=== PATIENT | female | born 1975 | race Caucasian/White ===

== ENCOUNTER 2022-11-12 15:12 | Outpatient (CLI) | payer OTHER ==
--- NOTE | 2022-11-12 16:27 | SLEEP CARE CONSULTATION ---
Information from patient questionnaire entered by Isela Rico. I have reviewed and concur with the information entered by Isela Rico. This document represents the service I personally performed and the decisions made by me, India Koch ARNP. History of Present Illness Service Date and Time: 11/12/2022 1512 Reason for Visit: New patient, Previously diagnosed sleep apnea, sleep apnea on CPAP therapy Chief Complaint: reports: Other (UPDATE SUPPLIES) Date of Onset: USING CPAP5+YRS Usual bedtime: 9-10PM Time it takes to fall asleep: 1HR Snores at night: No Observed to quit breathing while asleep: Yes Sleeps alone due to snoring: No Number of times waking at night: 2-3 Reasons for waking at night: reports: Gasping for air, Pain, Bathroom, Other (NOISE) Toss, Turn, or Twitch while sleeping: Yes Recalls having dreams: Yes Usually gets out of bed at: 6AM Feels refreshed in the morning: No Morning headache: No Sleepy or fatigued during the day: Yes Ever fallen asleep while driving: No Takes day naps: No Dreams during day naps: No Prior sleep studies: Yes Year and Where: [facility] 2017, [facility] 2021 Additional HPI information: ALEX JIMENEZ was previously diagnosed at [facility] in 12/23/2021 to have severe, AHI 36.8, obstructive sleep apnea-hypopnea syndrome and comes in today to establish care for CPAP therapy. - Parasomnia Symptoms Ever been unable to move upon waking from sleep: No Walks in sleep: No Talks in sleep: No Ever acted out dreams in sleep: No Ever felt weak in the knees when startled or emotional: No Bothered by creepy, crawly, restless sensations in legs: No Problems with memory or concentration: No CPAP Compliance Data - Data Reviewed with Patient Average duration of nightly device use: 8 hour 59 minutes Compliance rate %: 100 (30/30 days used) Current pressure setting (cmH2O): 10-20 (median 10.6, avg 12.8, max 14.7) Average residual AHI: 0.4 Central apnea: 0.0 Obstructive apnea: 0.2 Hypopnea: 0.1 Compliance data discussion: She has a ResMed Airsense 10 s/u 02/2017. She is using a Resmed AirTouch F20, size small, mask. She is using [employer] for her supplies. Subjective Patient concerns: reports: mask discomfort, air blowing in eyes, mask leak noise, dry mouth, nose, throat (dry mouth/gums), other (swollen, puffy eyes; otto on face). denies: aerophagia, condensation in mask/hose, nasal congestion, epistaxis Observed to snore while using device: No Current pressure setting perceived as: comfortable On therapy, patient: reports: sleeping better, awakening more refreshed, being more awake and alert during the day, more rested overall. denies: drowsiness while driving Initial [place] Sleepiness Scale score: 5 (11/11/22) Past Medical History Past Medical History: reports: Hypertension, Anxiety, Depression Social History The patient's occupation is a TEACHER. Patient is / and lives in . Have you smoked in the past 12 months: No Alcohol use: Yes Alcohol amount and frequency: 1-2 DRINKS A MONTH Caffeine use: Yes Caffeine amount and frequency: 1 CUP DAILY Family History Family history of sleep disordered breathing: Yes Family Hx Sleep Apnea: Mother: Snoring, Sleep apnea - Untreated, Father: Snoring, Sleep apnea - Untreated Allergies and Home Medications Known drug allergies: No Drug allergies reviewed: Yes Home medication list reviewed: Yes Allergy and home medication list: Medications: Diltiazem Review of Systems Weight loss over past 5 years: 55, since March 2021 Cardiovascular: reports: high blood pressure, chest pain, leg or foot swelling Gastrointestinal: denies: heartburn Urinary: reports: incontinence Neurological: reports: headaches Psychiatric: reports: anxiety, depression Ear/Nose/Throat: reports: dry mouth/throat Endocrine: denies: thyroid disease Physical Exam Vital signs obtained and entered by: ISELA Vann MA Blood Pressure: 152/100 (LEFT ARM) Cuff size: regular Heart Rate: 74 O2 Saturation: 98 Height: 5 ft 7 in Weight: 281 lb 9.6 oz Body Mass Index: 44.1 BMI Classification: Morbidly Obese Neck circumference: 17 Heart: regular rate and rhythm Lungs: clear bilaterally Impression and Plan 1. Obstructive Sleep Apnea-Hypopnea Syndrome, severe, with good treatment compliance and good apnea control. On CPAP therapy, the patient has better sleep quality and is more rested overall. Patient would like to use an oral appliance to control her sleep apnea. She does wear her mask every night but she wakes up with swollen eyes and otto on her face. She states is not very comfortable but she perseveres. I explained to her that an oral appliance will not usually control her severity of sleep apnea. She is trying to lose weight and has lost 55 pounds since March 2021. That would be about 20-25 pounds since her last sleep study. I encouraged her to continue to try to lose weight and that we will monitor and possibly do another sleep study to verify changes in her sleep apnea severity. She voiced agreement and understanding. Patient's apnea severity and rationale for treatment to reduce apnea, improve sleep quality and reduce cardiovascular and cerebrovascular events was reviewed. I also reviewed the benefit of consistent device use of CPAP for hypertension and depression. Patient would like to try a different mask. I did discuss with her using barriers to help make her mask more comfortable. I also showed her the ResMed AirFit F30i which could be more comfortable for her to wear. She liked the looks of it and I will write for a mask fitting so she can try it. I will add this to her prescription update. 2. Obesity, unspecified. Currently patients BMI is 44.1. Obesity increases the risk of apnea, CPAP pressure requirements and overall health risks especially cardiovascular and diabetes. Thus patient is advised to continue to try to lose weight. * Change auto CPAP pressure to 10-14 cmH2O * Update supplies * Notify me if snoring with mask or feeling that the pressure is too much or too little * Attempt to lose weight * Call this office if any problems using CPAP * Return for follow up in 1 year, or sooner if concerns arise Counseling Topics: Spare mask, Weight loss health impact Visit Type: In Office Time Spent with Patient (minutes): 32 Provider Statement: I spent 100% of the Face to Face Visit with the patient with greater than 50% spent counseling the patient and coordination of care.
[2022-11-12 16:47] VITALS: BP 152/100
== END 2022-11-12 15:13 | disposition home or self-care (01) ==
LOC: SC 15:12
PROVIDERS: ATTEND Nurse Practitioner Family
DX: G47.33 Obstructive sleep apnea (adult) (pediatric) (principal); E66.01 Morbid (severe) obesity due to excess calories; Z68.41 Body mass index [BMI] 40.0-44.9, adult
CPT/HCPCS: 99203; 99212

== ENCOUNTER 2024-01-14 15:44 | Outpatient (CLI) | payer OTHER ==
--- NOTE | 2024-01-14 16:14 | Sleep Patient Instructions ---
Sleep Center Visit Summary - Patient Visit Information Reason for Visit: Annual follow-up - Patient Instructions Additional Instructions: You will continue with CPAP therapy with pressure set at 10-14 cmH2O. A supply prescription will be updated with your DME. I will order a sleep study, either an in-lab polysomnography (PSG) or home sleep study (HST). You will follow-up in the sleep care office after the sleep study. We encourage you to continue to try to lose weight. Please follow up with the sleep care office after sleep study if authorized. - Clinic Information Contact: [facility] [address] [place] [address] [email or web address] T: [phone]
--- NOTE | 2024-01-14 16:18 | SLEEP CARE CONSULTATION ---
Information from patient questionnaire entered by Isela Rico. I have reviewed and concur with the information entered by Isela Rico. This document represents the service I personally performed and the decisions made by me, India Koch ARNP. History of Present Illness Service Date and Time: 01/14/2024 1544 Previous diagnosis: Severe, Obstructive Sleep Apnea-Hypopnea Syndrome AHI: 36.8 (12/23/2021) Reason for follow up: annual (LAST SEEN 10/2022) Equipment type: CPAP (ResMed Airsense 10, s/u 02/2017) Equipment obtained from: [facility] ([employer] supplies) Mask style: Full face Mask brand: Resmed (F30) Backup mask available: Yes Last cushion change: 1 week Prior sleep studies: Yes Year and Where: [facility] 2017, 2021 HPI additional information: ALEX JIMENEZ was diagnosed to have severe, AHI 36.8, obstructive sleep apnea- hypopnea syndrome and returned today for CPAP therapy annual follow-up. Sleep Study - Results Prior sleep studies: Yes Year and Where: [facility] 2017, 2021 CPAP Compliance Data - Data Reviewed with Patient Average duration of nightly device use: 8 HRS 19 MINS Compliance rate %: 100 (01/11/23-01/10/24) Current pressure setting (cmH2O): 10-14 Average residual AHI: 0.4 Central apnea: 0 Obstructive apnea: 0.1 Hypopnea: 0.2 Average large leak: 5.4 L/min Subjective Patient concerns: reports: mask discomfort, air blowing in eyes, mask leak noise, dry mouth, nose, throat, other (headaches, has these all the time). denies: aerophagia, condensation in mask/hose, nasal congestion, epistaxis Observed to snore while using device: No Current pressure setting perceived as: comfortable On therapy, patient: reports: sleeping better, awakening more refreshed, being more awake and alert during the day, more rested overall. denies: drowsiness while driving Initial [place] Sleepiness Scale score: 5 (11/11/22) Current [place] Sleepiness Scale score: 5 (01/14/24) Allergies and Home Medications Known drug allergies: No Drug allergies reviewed: Yes Home medication list reviewed: Yes (Losartan, trazodone) Allergy and home medication list: Allergies No Known Drug Allergies Allergy (Verified 01/11/24 14:54) Review of Systems Review of systems same as previous: Yes (NO CHANGE) Physical Exam Vital signs obtained and entered by: MARANDA Vann MA Blood Pressure: 148/95 (LEFT ARM) Cuff size: long Heart Rate: 99 O2 Saturation: 78 Height: 5 ft 7 in Weight: 270 lb 3.2 oz Weight change since last visit: 11 lb loss Body Mass Index: 42.3 BMI Classification: Morbidly Obese Impression and Plan 1. Obstructive Sleep Apnea-Hypopnea Syndrome, severe, with good treatment compliance and good apnea control. On CPAP therapy, the patient has better sleep quality and is more rested overall. She has lost another 20 pounds in the last 2 years with a total of 70 lost in about 3.5 years. She would like to see if her apnea has improved enough to switch from CPAP to oral device. I will order a PSG and see if her insurance will authorize it. She says if not then she will need to replace her CPAP because it is giving her an error that the motor has exceeded it's life. She wants to wait to replace it until after we see if she can do another sleep study. Patient's apnea severity and rationale for treatment to reduce apnea, improve sleep quality and reduce cardiovascular and cerebrovascular events was reviewed. I also reviewed the benefit of consistent device use of CPAP for hypertension, depression/anxiety. 2. Obesity, unspecified. Currently patients BMI is 42.3. She has lost 20 pounds in the last 2 years. She lost about 70 pounds in last 3.5 years. Obesity increases the risk of apnea, CPAP pressure requirements and overall health risks especially cardiovascular and diabetes. Thus patient is advised to continue to try to lose weight. * Continue auto CPAP pressure at 10-14 cmH2O * PSG to verify diagnosis and severity * Update supply prescription * Notify me if snoring with mask or feeling that the pressure is too much or too little * Attempt to lose weight * Call this office if any problems using CPAP * Return for follow up after sleep study, or sooner if concerns arise Continue with device pressure at (cmH2O): 10-14 Counseling Topics: Spare mask, Weight loss health impact Prescriptions: Device supplies Plan: PSG Visit Type: In Office Time Spent with Patient (minutes): 28 Provider Statement: I spent 100% of the Face to Face Visit with the patient with greater than 50% spent counseling the patient and coordination of care.
[2024-01-14 16:19] VITALS: BP 148/95; O2SAT 78
== END 2024-01-14 15:45 | disposition home or self-care (01) ==
LOC: SC 15:44
PROVIDERS: ATTEND Nurse Practitioner Family
DX: G47.33 Obstructive sleep apnea (adult) (pediatric) (principal); E66.01 Morbid (severe) obesity due to excess calories; Z68.41 Body mass index [BMI] 40.0-44.9, adult
CPT/HCPCS: 99212; 99213

== ENCOUNTER 2024-02-19 12:31 | Outpatient (CLI) | payer OTHER | END 2024-02-19 12:32 | disposition home or self-care (01) | LOC: SC 12:31 | PROVIDERS: ATTEND Nurse Practitioner Family | DX: G47.33 Obstructive sleep apnea (adult) (pediatric) (principal); R09.02 Hypoxemia | CPT/HCPCS: 95806 ==

== ENCOUNTER 2024-03-03 15:59 | Outpatient (CLI) | payer OTHER ==
--- NOTE | 2024-03-03 16:22 | Sleep Patient Instructions ---
Sleep Center Visit Summary - Patient Visit Information Reason for Visit: Sleep study follow-up - Patient Instructions Instructions Attached: Apnea Sleep Mouthpieces Additional Instructions: You have opted to change your therapy to an oral mandibular appliance to control your sleep apnea. A list of certified dentists in the area was provided for you to find a dentist to have your oral appliance made. Once you have the device, please call and make a follow up appointment. We need to see you after you have been using the appliance for a month. We will evaluate your response to therapy and order a follow up sleep study to check efficiency of treatment. Please call office to schedule a follow up appointment in the sleep care office one month after obtaining new device. - Clinic Information Contact: [facility] [address] [place] [address] [email or web address] T: [phone]
--- NOTE | 2024-03-03 16:27 | SLEEP CARE CONSULTATION ---
Information from patient questionnaire entered by Isela Rico. I have reviewed and concur with the information entered by Isela Rico. This document represents the service I personally performed and the decisions made by , India Koch ARNP. History of Present Illness Service Date and Time: 03/03/2024 1559 Initial [place] Sleepiness Scale score: 5 (11/11/22) Current [place] Sleepiness Scale score: 6 (03/03/24) Additional HPI information: ALEX JIMENEZ returns for follow up and results of the recently performed home sleep study. The sleep study done on 02/20/24 showed mild obstructive sleep apnea with an average AHI of 7.6 and harriet oxygen saturation of 86%. I explained the pathophysiology behind obstructive sleep apnea. We then spent quite a bit of time discussing different treatment options. For mild obstructive sleep apnea, surgery and oral appliance are alternatives to nasal CPAP therapy but in moderate or severe cases, nasal CPAP is the most effective and reliable treatment. I reviewed the impact of weight changes on sleep apnea and strongly recommended losing weight. After some discussion, the patient would like to change to an oral appliance to treat her sleep apnea. Patient counseled not drink alcohol less than 4 hours before bedtime as it can increase snoring and apnea. Patient was cautioned about risks of drowsy driving until sleepiness symptoms resolve. Patient denies drowsy driving. Sleep Study - Results Type of Sleep Study: Home sleep study (COMPLETED 01/24/24) Prior sleep studies: Yes Year and Where: [facility] 2017, [facility] 2021 Polysomnography/Home Sleep Study results: Physician Impression: The quality of the study is good. The length of the study is adequate (> 240 minutes). Please also see the tabulated and graphic data. 1. Obstructive Sleep Apnea-Hypopnea (ICD-10 G47.33), mild, with an AHI of 7.6/hr and harriet SaO2 of 86%. During the study, the patient had 2 apneas (2 obstructive, 0 central, 0 mixed) and 59 hypopneas. The longest episode lasted 129.0 seconds. The respiratory events occurred independently of sleep stage and body position (supine AHI was 7.1 and non-supine, 16.22). 2. Hypoxemia (ICD-10 R09.02), mild, with the lowest oxygen saturation of 86 % and 4.0 minutes with SaO2 under 90%. Baseline oxygen saturation was normal (Average oxygen saturation was 94%). Allergies and Home Medications Known drug allergies: No Drug allergies reviewed: Yes Home medication list reviewed: Yes (no changes) Allergy and home medication list: Allergies No Known Drug Allergies Allergy (Verified 03/02/24 08:34) Review of Systems Review of systems same as previous: Yes (NO CHANGE ) Physical Exam Vital signs obtained and entered by: ISELA Vann MA Blood Pressure: 164/82 (LEFT ARM) Cuff size: long Heart Rate: 72 O2 Saturation: 99 Height: 5 ft 7 in Weight: 257 lb 3.2 oz Weight change since last visit: 13 lb loss Body Mass Index: 40.2 BMI Classification: Morbidly Obese Impression and Plan 1. Obstructive Sleep Apnea-Hypopnea Syndrome, mild, with lowest oxygen saturation of 86%. She is currently using a CPAP set at 10-14 cm H2O. Positive pressure therapy could benefit hypertension, depression and anxiety. Patient would like to try an oral appliance since she intends to continue to lose weight and feels it would be more convenient. A follow up will be made to see if appliance has reduced symptoms. If so, another polysomnography will be ordered with use of the oral appliance to check efficacy in reducing apnea. Until patient is able to use the oral appliance, she will continue to use her CPAP. 2. Hypoxemia, mild, with a harriet oxygen saturation of 86% and 4 minutes spent under 90%. The baseline oxygen saturation was normal with an average oxygen saturation of 94%. 3. Obesity, unspecified. Currently patients BMI is 40.2. She has continued to lose weight. Obesity increases the risk of apnea, CPAP pressure requirements and overall health risks especially cardiovascular and diabetes. Thus patient is advised to continue to try to lose weight. * Continue auto CPAP pressure at 10-14 cmH2O * Prescription for oral appliance * Notify me if snoring with mask or feeling that the pressure is too much or too little * Continue to try to lose weight * Call this office if any problems using CPAP or otherwise * Return for follow up one month after obtaining new oral device, or sooner if concerns arise Continue with device pressure at (cmH2O): 10-14 Counseling Topics: Weight loss health impact Prescriptions: Other (Oral appliance) Follow up with Sleep Care in: 3 months (about) Plan: obtain oral device, followup Visit Type: In Office Time Spent with Patient (minutes): 22 Provider Statement: I spent 100% of the Face to Face Visit with the patient with greater than 50% spent counseling the patient and coordination of care.
[2024-03-03 16:30] VITALS: BP 164/82; O2SAT 99
== END 2024-03-03 16:00 | disposition home or self-care (01) ==
LOC: SC 15:59
PROVIDERS: ATTEND Nurse Practitioner Family
DX: G47.33 Obstructive sleep apnea (adult) (pediatric) (principal); E66.01 Morbid (severe) obesity due to excess calories; Z68.41 Body mass index [BMI] 40.0-44.9, adult
CPT/HCPCS: 99212; 99213